=== PATIENT | female | born 1955 | race Caucasian/White ===

== ENCOUNTER → 2018-01-10 08:26 | Outpatient (CLI) | payer BC, SELFPAY ==
[2018-01-10 08:42] LABS: Abs Immature Grans 0.01 k/cumm (0.0-0.09); Absolute Basophil Count 0.03 k/cumm (0.0-0.2); Absolute Eosinophil Count 0.33 k/cumm (0.0-0.7); Absolute Lymphocyte Count 2.14 k/cumm (1.2-3.4); Absolute Monocyte Count 0.95 k/cumm (0.11-0.7); Absolute Neutrophil Count 3.95 k/cumm (1.2-6.7); Basophils % 0.4; Eosinophils % 4.5; HCT 39.5 % (36.0-46.0); HGB 12.9 g/dL (12.0-15.5); Immature Grans % 0.1; Lymphocytes % 28.9; Mean Corp. HGB Concentration 32.7 g/dL (32.0-36.0); Mean Corpuscular Hemoglobin 28.2 pg (27.0-33.0); Mean Corpuscular Volume 86.4 fL (80-95); Mean Platelet Volume 9.6 fL (8.0-11.0); Monocytes % 12.8; Neutrophils % 53.3; Platelet Count 270 x1000/uL (130-400); RBC 4.57 m/cumm (4.00-5.20); RBC Distribution Width 13.5 % (11.7-14.6); White Blood Cell Count 7.41 k/cumm (4.4-10.8)
[2018-01-10 09:12] LABS: ALT 30 U/L (12-78); AST 25 U/L (15-37); Albumin 3.9 g/dL (3.4-5.0); Alkaline Phosphatase 49 U/L (46-116); Anion Gap 9.4 mmol/L (3-11); BUN 18 mg/dL (7-18); Bilirubin, Total 0.6 mg/dL (0.2-1.0); CO2 26.6 mmol/L (21.0-32.0); CREATININE 0.93 mg/dL (0.55-1.02); Chloride 101 mmol/L (98-107); Cholesterol 207 mg/dL (50-200); Glucose 91 mg/dL (70-100); HDL Cholesterol 88 mg/dL (40-60); LDL CHOLESTEROL 110 mg/dL (<100); Potassium 4.1 mmol/L (3.5-5.1); Sodium 137 mmol/L (136-145); Total Protein 7.4 g/dL (6.4-8.2); Triglyceride 50 mg/dL (30-150)
[2018-01-10 09:35] LABS: FREE T4 1.04 ng/dL (0.76-1.46)
== END ==
PROVIDERS: PCP Internal Medicine; Visit Provider Internal Medicine
DX: E78.5 Hyperlipidemia, unspecified (principal); F41.9 Anxiety disorder, unspecified; M85.80 Other specified disorders of bone density and structure, unspecified site; R51 Headache; D64.9 Anemia, unspecified; R00.2 Palpitations
CPT/HCPCS: 36415; 80053; 80061; 83721; 84439; 84443; 85025

== ENCOUNTER 2018-02-01 15:30 | Outpatient (RCR) | payer BC, SELFPAY ==
--- NOTE | 2018-01-07 14:57 | PTTR_ITS ---
DATE: 01/07/18 SUBJECTIVE: No change in symptoms. OBJECTIVE: Manual therapy: ([id number]). (L) shoulder ROM pre tx about 150* flexion abduction 150* with painful arc from 90-150*. IR to (L) mid buttock and ER to C5. PROM (L) shoulder pre tx: Flexion 145* Abduction 145* ER 40* IR 30* post tx reaching 160* flexion, abduction. ER to 60* Soft tissue mobilization of the (L) shoulder girdle working deep tissue through the infraspinatus and supraspinatus fossa, cross friction desensitization, proximal bicep and supraspinatus tendon. Mobilization (L) shoulder all planes utilizing distraction, end range AP mobilization throughout, all of which did not allow for much pain alleviation as anticipated which resulted to some grade 2++ mobilizations working into 4 - -, working more on pain limitations to allow for mobility gains. No updates to HEP. Direct treatment time: 30 minutes Total treatment time: 30 minutes
--- NOTE | 2018-01-10 11:30 | PTTR_ITS ---
DATE: 01/10/18 SUBJECTIVE: Loulou stating her shoulder is really no better. She comes in today with her x-ray report. She leaves tomorrow for a week in [place] to visit her daughter. She understands she needs to likely make an ortho consult, but she is fearful of injections. OBJECTIVE: ROM: L shoulder pre treatment active reaches about 150 degrees flexion/ abduction with pain end range local to anterior GH joint. IR just below bra strap level, ER to level of T1 with pain end range. Passive reaching 150 flexion/abduction, ER/IR 45. Pain local to the AC region. PALPATION: Just mild discomfort with anterior AC joint, but moreso local to the AC joint, soft tissue tension appreciated through the supraspinatus fossa, levator scap, upper trap and pectorals. ACCESSORY MOTIONS: AC joint is painful with both inferior and posterior gliding , GH joint mild discomfort all planes. 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 No other pathology. Manual therapy: ([id number]). Mobilization of the L GH joint beginning with accessory gliding all planes with focus on AP inferior gliding and neutral position as well as end range flexion in quadrant positions, all were irritable and unable to alleviate symptoms, so dissipated. Completed AC and posterior gliding of a grade 4-- to her tolerance, completed end range oscillations of the GH joint into flexion and quadrant position with distraction and attempt of inferior and AP gliding, but unable to eliminate her pain as well as ER/IR grade 1-2 progressing into 4-- with some distraction, which she was able to tolerate with fair discomfort. Completed soft tissue mobilization extending along the superior, inferior aspect of the clavicle working on fascial release and moving onto cross friction massage efforts along the AC joint itself, deeper tissue work through levator scap, supraspinatus, upper trap and scalenes. In R sidelying, complete L scap thoracic mobilization focusing on some upward rotation of the L scapula, particularly into end range GH flexion, attempt to reduce the compression of the AC joint and alleviate pain; but this is not successful in regards to pain relief. She receives Rock taping to L shoulder girdle to encourage lower trap facilitation for proper posture of the shoulder girdle, decompressing the AC joint as well as tape application over the AC joint itself for desensitization. Ultrasound [id number]: for 8 mins, 50% 3 mhz, 1.2w/cm2 over L AC joint with dexamethasone. HEP review: Pendulums, continue with wall stretching activities, but without discomfort. Continue to work on lower trap isometrics and postural correction. Direct treatment time: 53 mins Total treatment time: 53 mins A: Don is having minimal to no change in response to PT treatment. X-ray identifying AC degeneration which does correlate with her clinical findings of discomfort with end range flexion/abduction, localized AC discomfort, and surrounding fascial discomfort through the AC and clavicular region. She is also demonstrating some GH joint limitations likely secondary to her AC pathology. I think ortho consult is certainly justified at this point due to lack of overall response to PT. Today, I did change up her treatment some with more isolated treatment to the AC joint, will see if this influences her symptoms at all. She will be absent from PT for 1 week as she is away on vacation and will re-assess her upon her return to see how she tolerated today' s treatment, and to see if it changed her symptoms at all. P: Follow up in 1 weeks time, schedule ortho consult, and continue with PT treatment pending response to today's treatment. SHAHID/gerry
--- NOTE | 2018-01-21 09:09 | PTTR_ITS ---
DATE: 01/21/18 SUBJECTIVE: Loulou returning after a week and a half away in [place] visiting her daughter. (L) shoulder symptoms are really unchanged through this time. Essentially no change in (L) shoulder pain since start of PT. After last session she had increased pain for a short time. She has an ortho consult scheduled for the end of February. OBJECTIVE: ROM- (L) shoulder reaches about 145-150* of both flexion and abduction with pain at end range. IR reaches bra strap but with pain ER with (L) level of T5. Passively reaches 150* of both flexion, 130* abduction going into the scapular plane reaches 145. ER/IR both 40* and both with pain at end ranges and really unchanged by the end of tx. With palpation she has remarkable tension particularly through the upper traps, supraspinatus, pec and proximal bicep, posterior capsule. Accessory motions are WNL through the glenohumeral joint but with pain with AP direction due to soft tissue drawing of the anterior joint and very tender all joints with AC joint. Manual therapy: ([id number]). Glenohumeral joint mobilizations all planes with focus of AP direction, scap thoracic gliding into all planes with distraction and retraction focus. Soft tissue mobilization throughout the entire (L) Shoulder girdle with focus of pec release, bicep release, deep tissue work through the posterior capsule. Desensitization massage over the AC joint. Grade 1-2 oscillations into flexion, quadrant, ER and IR. Pt really unable to tolerate grade 3 or 4 today. Direct treatment time: 45 minutes Total treatment time: 45 minutes ASSESSMENT: No remarkable changes, pt presents more pain dominant really having minimal response to PT efforts. Ortho consult is certainly appropriate at this point and focus more on pain management efforts today with soft tissue mobilization and scap thoracic mobs to see if this influences her pain. I will meet with her again next week and see how she responded and if she is having favorable response then proceed further. If she does not have a great deal of change with pain mangement focus we will place her on hold from PT for 2-3 visits until she meets with ortho. PLAN: As above 2x per week.
--- NOTE | 2018-01-24 15:39 | PTTR_ITS ---
DATE: 01/24/18 SUBJECTIVE: Loulou reports that she is not noticed any increase in her comfort after soft tissue mobilization techniques performed last session. She is very frustrated with her progress. She does note that she has an orthopedic appt at the end of February and her and primary therapist Christy Gallegos will discuss options of tx on Wednesday. OBJECTIVE: Manual therapy: ([id number]). In supine provide mobilization at the (L) glenohumeral joint into all planes of motion, provide AP and inferior joint mobilizations. PROM instructing into all planes. She has end range discomfort into all planes, flexion she tolerates to 165*, ER 70* and IR 60*. Provide friction massage to the GT followed by extensive soft tissue mobilization techniques through the pec musculature, posterior capsule and supraspinatus fossa. Performed trigger point release to the upper trap on the (L). She has a follow up later this week with primary therapist Christy Gallegos to discuss plan of care. Direct treatment time: 30 minutes Total treatment time: 30 minutes
--- NOTE | 2018-01-26 07:30 | PTTR_ITS ---
DATE: 01/26/18 SUBJECTIVE: Loulou stating overall still no remarkable changes in her L shoulder discomfort. At this point, she feels like even her stretches sometimes aggravate it. She had no great relief from last treatment. She is awaiting her ortho consult with Dr. Cronin on the 03/03. OBJECTIVE: L shoulder ROM: Flexion reaches about 145, abduction 145 going into scaption both with pain at end range and upon dissension. She struggles to maintain proper scapular stability. IR is to level of L1, ER to C5 both with pain at end range with facial grimacing throughout. Posture: Elevation of L shoulder girdle, hypotonicity of the L upper trap. Strength: L shoulder flexion is 4/5, abduction 4-/5 both with pain. IR/ER is 5/ 5 with pain. Differ special testing of empty can, Speeds, etc. . . due to pain dominant presentation today. ACCESSORY MOTION: Is WNL, but painful all planes. AC joint pain just upon palpation. Scap, thoracic joint is hypomobile, primarily due to patient guarding. Palpation: Tissue tightness throughout the L upper trap, L posterior capsule and remarkable restriction to the fascial of L pec. Trigger points of the infraspinatus and supraspinatus fossa. Tenderness locally at the AC joint and proximally bicep tendon. Manual therapy: ([id number]). Mobilization of L GH joint with grade 1 and 2 oscillations to accommodate the pain dominant condition, all planes. Defer AC mobilization today due to her pain. Scap, thoracic mobilizations performed as tolerated. STM primary focus for attempt of pain management with down regulation to the L pec, posterior capsule and infraspinatus. Up regulation through the lower trap, down regulation to the upper trap with trigger point release technique and deep tissue work. Rock taping for facilitation of proper scap stability, lower trap and inhibition of her L pec. Therapeutic procedures ([id number]). Review scap stabilization exercises in prone to consist of GH extension and abduction with lower trap facilitation, review pendulum and wall climb activities, only to her tolerance. Recommendations; A dry needling session to attend the soft tissue dysfunction in the event that may allow for some pain alleviation and improve tolerance to PT management. Direct treatment time: 45 mins Total treatment time: 45 mins A: Loulou is ultimately failing to PT conservative management for treatment of L shoulder pain. Clinically presents with signs and symptoms of L AC pathology, confirmed by x-ray, as well as bursitis of L GH joint. At this point I think she is still flared up and having difficult time calming down her symptoms. Ortho consult is suggested considering her lack of response to PT session. I think putting her on hold is appropriate, however I would like her to try some dry needling, which she agrees to in the meantime to see if this may allow for pain management and facilitate inhibition of her soft tissue to then respond to PT management better. P: Trial dry needling, pending response to that will resume with her private utilization efforts, or return to my care if her pain becomes under better control. At that point, she may respond better to conservative treatment. Otherwise, she will be on hold with PT. She will be contact with me between her dry needling visit so we can discuss her response. SHAHID/gerry
--- NOTE | 2018-02-01 15:30 | PTTR_ITS ---
DATE: 02/01/18 SUBJECTIVE: Loulou complains of intermittent discomfort throughout the L GH joint , occasionally through the lateral aspect of proximal humerus. It is usually movement induced, particularly when reaching behind her back, overhead or out to her side. Has difficulty laying on her L side for any prolonged period. OBJECTIVE: Asked to see Loulou by my associate LOGAN Bermudez for possible dry needling Loulou states she developed an insidious onset of L shoulder pain a few months back. She continues to be symptomatic especially with movement. She has an appt with Dr. Cronin in approximately 3-4 weeks. ARTICULAR: Her active L shoulder motion reveals good initiation with flexion/ abduction, limited to approximately 120-130 degrees with end range discomfort suprahumerally. Her abduction is approximately 80-90 degrees, then she slides into scaption plane. Her R thumb is at about T8 level when reaching behind her back, L thumb is at least 12-18 below that and painful. Her ER with elbow tucked into her side is 70 degrees R, compared to 30-40 degrees on the L, again with end range pain. AA in supine position flexion is 135-40, abduction 90 degrees, ER 60 degrees and IR 60 degrees, again with end range pain. Her pure GH movement on the L is 60 degrees compared to 100 degrees on the R. She tolerates good resistance to rotator cuff with minimal discomfort. She was on a 10 day dose of Prednisone earlier this year and it did not make any difference in her symptoms. She does take a couple Ibuprofen periodically, particularly at night time to sleep and does seem to have some positive affect. She has not been on a regular dosage of Ibuprofen or Naproxen. She may benefit form this to try a therapeutic dose over the next 3-4 days and see if it is helpful. She has no other medical problems. Discussed dry needling with her and she was not enthusiastic about this and would prefer to hold on for time being. I did mobilize her shoulder and I was able to get her close to 80-90 degrees of ER, but again she was in the scaption plane and 80 degrees of IR. Flexion close to 150-155, again she had end range pain with each of these movements. I issue her a quita mechanism for home stretches, she felt this was more effective with less pain for flexion/abduction and ER. I ice her shoulder after the session. Manual therapy: ([id number]). 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 Tolerated relatively good resistance to the cuff without discomfort and she does not appear to be fully scarred down as I was able to get relatively good range, even though it was painful. See if it will settle down, she was on some non-steroidal and how she responds to today;s mobilization. P: Have Loulou monitor her response to today's session. Issue her a quita system for AAROM, stretches to her shoulder focusing in on flexion/abduction and ER, Codman exercises frequently as well as icing. Start her anti- inflammatories, she can consult her PCP or pharmacist regarding dosage. She is going to call me by phone later this week regarding her response. DLW/dl
== END 2018-02-04 23:59 | disposition home or self-care (01) ==
LOC: PT 15:30
PROVIDERS: PCP Internal Medicine; Referring Provider Internal Medicine; Visit Provider Internal Medicine
DX: M25.512 Pain in left shoulder (principal); M65.812 Other synovitis and tenosynovitis, left shoulder; M75.22 Bicipital tendinitis, left shoulder
CPT/HCPCS: 97035; 97110; 97140

== ENCOUNTER → 2018-02-02 15:18 | Outpatient (CLI) | payer BC, SELFPAY ==
[2018-02-02 16:53] LABS: FREE T4 0.95 ng/dL (0.76-1.46); TSH (W/Ref FT4) 0.22 uIU/mL (0.358-3.74)
[2018-02-03 17:19] LABS: T3,Free 3.3 pg/ml (2.8-5.3)
[2018-02-03 17:35] LABS: T3, Total 115 ng/dl (97-169)
== END ==
PROVIDERS: PCP Internal Medicine; Visit Provider Internal Medicine
DX: R79.89 Other specified abnormal findings of blood chemistry (principal)
CPT/HCPCS: 36415; 84439; 84443; 84480; 84481

== ENCOUNTER 2018-04-22 10:30 | Outpatient (CLI) | payer BC, SELFPAY | END 2018-04-22 10:50 | PROVIDERS: PCP Internal Medicine; Visit Provider Internal Medicine | DX: R79.89 Other specified abnormal findings of blood chemistry (principal) | CPT/HCPCS: 36415; 84443 ==

== ENCOUNTER 2019-03-06 12:20 | Outpatient (REF) | payer MEDICARE, OTHER, SELFPAY ==
--- NOTE | 2019-03-06 10:00 | PAPFT_PTH ---
PATIENT: Loulou Agurire LOC: [facility] U#:[id number] AGE/SX: 63/F ROOM: RE03/06/[address]: Kimberly Mock MD : [id number] BED: DIS: 03/06/2019 SPEC #: [id number] RECD: 03/06/19 13:05 STATUS: GENNA REMirna #: [id number] MEGAN: 03/06/19 10:[address]: Kimberly Crews DEPT: [facility] Cytology RECD BY: Rita Gomez Tissues: 1 - CX/ENDOCX FOR PAP SMEARS Procedures: PAP THIN PREP/UVM Screening HPV DNA PROBE Comments: [id number]
== END 2019-03-06 12:40 ==
LOC: LBN 12:20
PROVIDERS: PCP Internal Medicine; Visit Provider Internal Medicine
DX: Z12.4 Encounter for screening for malignant neoplasm of cervix (principal); Z11.51 Encounter for screening for human papillomavirus (HPV)
CPT/HCPCS: 88142; 87624

== ENCOUNTER 2019-03-14 01:34 | Outpatient (CLI) | payer MEDICARE, OTHER, SELFPAY ==
--- NOTE | 2019-03-14 10:53 | DI.MAMMO_ITS ---
EXAM: MAMMO SCREENING CLINICAL HISTORY: screening Z12.39. TECHNIQUE: Mammograms were interpreted according to the usual protocol including computer analysis w [employer] CAD system, tomosynthesis and C-view imaging. FINDINGS: The breast tissue is moderately radiodense with fibronodular opacities noted bilaterally. There is n o dominant mass. There are no suspicious calcifications and there has been no significant interval ch scout when compared with prior images. IMPRESSION: No evidence of malignancy, category 1. Breast density, category C. BI-RADS Cat 1 - Negative. Breast Density - Category C - Heterogeneously dense.
== END 2019-03-14 01:54 ==
PROVIDERS: PCP Internal Medicine; Visit Provider Internal Medicine
DX: Z12.31 Encounter for screening mammogram for malignant neoplasm of breast (principal)
CPT/HCPCS: 77063; 77067

== ENCOUNTER 2019-12-15 03:18 | Outpatient (CLI) | payer MEDICARE, OTHER, SELFPAY ==
[2019-12-15 09:22] LABS: Anion Gap 7.8 mmol/L (3-11); BUN 18 mg/dL (7-18); CO2 26.2 mmol/L (21.0-32.0); CREATININE 0.69 mg/dL (0.55-1.02); Calcium 9.3 mg/dL (8.5-10.1); Chloride 102 mmol/L (98-107); Glucose 107 mg/dL (74-106); Potassium 4.9 mmol/L (3.5-5.1); Sodium 136 mmol/L (136-145)
== END 2019-12-15 03:38 ==
PROVIDERS: PCP Nurse Practitioner
DX: Z79.899 Other long term (current) drug therapy (principal)
CPT/HCPCS: 36415; 80048

== ENCOUNTER 2020-04-16 07:57 | Outpatient (CLI) | payer MEDICARE, OTHER, SELFPAY ==
[2020-04-20 22:51] LABS: Patient Race White; SARS-CoV-2 RNA Undetected (Undetected); SARS-CoV-2 Specimen Source Nasal
== END 2020-04-16 08:17 ==
PROVIDERS: PCP Nurse Practitioner; Visit Provider Nurse Practitioner
DX: Z11.59 Encounter for screening for other viral diseases (principal)
CPT/HCPCS: U0003

== ENCOUNTER 2020-04-26 04:17 | Outpatient (CLI) | payer MEDICARE, OTHER, SELFPAY ==
--- NOTE | 2020-04-26 10:20 | DI.MAMMO_ITS ---
EXAM: MG MAMMO SCREENING CLINICAL HISTORY: screening,Z12.39 TECHNIQUE: Bilateral full field digital CC and MLO mammographic images were obtained with 3D tomosyn thesis and utilizing computer aided detection (CAD). COMPARISON: Available for comparison. FINDINGS: Masses/Architectural Distortion: None seen. Microcalcifications: No suspicious pleomorphic-type are seen. Skin Thickening/Nipple Retraction: None. IMPRESSION: 1. No significant interval change with no specific features of malignancy noted. 2. Unless there is more urgent need, screening mammography is recommended, as per [employer] guidelines. BI-RADS Category 1 - Negative Breast Density - Category B - Scattered areas of fibroglandular density A negative radiographic report should not delay biopsy if a dominant or clinically suspicious mass is present. Up to ten percent of cancers are not identified on mammography. A negative report may reinforce clinical impression. Adenosis and dense breasts may obscure an underlying neoplasm. False positive reports average 6 to 10%. Patient will receive a letter notifying them of these results.
== END 2020-04-26 04:37 ==
PROVIDERS: PCP Nurse Practitioner; Visit Provider Nurse Practitioner
DX: Z12.31 Encounter for screening mammogram for malignant neoplasm of breast (principal)
CPT/HCPCS: 77063; 77067

== ENCOUNTER 2020-04-26 08:04 | Outpatient (RCR) | payer MEDICARE, OTHER, SELFPAY ==
--- NOTE | 2020-04-26 10:30 | HOLTER_ITS ---
APPROVED REPORT Exam Type: HOLTER MONITOR APPLICATION Reason for Test: I49.4 CARIDAC ARRHYTHMIA Patient Location: O Conclusion This was a 48-hour Holter monitor reportedly ordered for symptoms of cardiac arrhythmia The rhythm throughout was sinus with an average heart rate of 71. Minimum heart rate was 43 and maxi mum 118 There were very rare atrial and ventricular ectopic beats There were several brief atrial runs, the longest of which was 8 beats in duration. None of these we re symptomatic Patient symptoms corresponded to sinus rhythm rate 92 There was no atrial fibrillation, no pauses greater than 3 seconds, no high-grade AV block
== END 2020-05-06 23:59 | disposition home or self-care (01) ==
LOC: RT 08:04
PROVIDERS: PCP Nurse Practitioner; Visit Provider Nurse Practitioner
DX: I49.8 Other specified cardiac arrhythmias (principal); I49.1 Atrial premature depolarization
CPT/HCPCS: 93227; 93225; 93226

== ENCOUNTER 2020-04-29 20:03 | Outpatient (REF) | payer MEDICARE, OTHER, SELFPAY ==
[2020-05-02 13:15] LABS: Patient Race White; SARS-CoV-2 RNA Undetected (Undetected); SARS-CoV-2 Specimen Source Nasal
== END 2020-04-29 20:23 ==
LOC: NCHCN 20:03
PROVIDERS: PCP Nurse Practitioner; Visit Provider Internal Medicine
DX: Z20.828 Contact with and (suspected) exposure to other viral communicable diseases (principal)
CPT/HCPCS: U0003

== ENCOUNTER 2020-12-23 03:16 | Outpatient (CLI) | payer MEDICARE, OTHER, SELFPAY ==
[2020-12-23 12:56] LABS: Anion Gap 8.5 mmol/L (3-11); BUN 19 mg/dL (7-18); CO2 27.5 mmol/L (21.0-32.0); CREATININE 0.8 mg/dL (0.55-1.02); Calcium 8.9 mg/dL (8.5-10.1); Chloride 102 mmol/L (98-107); Glucose 103 mg/dL (74-106); Potassium 4.2 mmol/L (3.5-5.1); Sodium 138 mmol/L (136-145)
== END 2020-12-23 03:17 | disposition home or self-care (01) ==
LOC: LOS 03:19
PROVIDERS: PCP Nurse Practitioner; Visit Provider Nurse Practitioner Family
DX: G43.109 Migraine with aura, not intractable, without status migrainosus (principal)
CPT/HCPCS: 36415; 80048

== ENCOUNTER 2021-05-26 01:03 | Outpatient (CLI) | payer MEDICARE, OTHER, SELFPAY ==
--- NOTE | 2021-05-26 08:25 | DI.MAMMO_ITS ---
Exam(s) MAMMO SCREENING EXAM: MAMMO SCREENING CLINICAL HISTORY: screening,z12.39 TECHNIQUE: Mammograms were interpreted according to the usual protocol including computer analysis w [employer] CAD system, tomosynthesis and C-view imaging. COMPARISON: 2012 through 2019 FINDINGS: The breasts are composed of scattered fibroglandular densities, Breast Density category B. No suspicious masses or suspicious microcalcifications are seen. No skin thickening or abnormal axillary lymph nodes are seen. There has been no significant change from prior exams. IMPRESSION: BI-RADS Category 1, Negative mammogram Yearly screening mammography is recommended. Breast Density - Category B, scattered fibroglandular densities. A negative radiographic report should not delay biopsy if a dominant or clinically suspicious mass is present. Up to ten percent of cancers are not identified on mammography. A negative report may reinforce clinical impression. Adenosis and dense breasts may obscure an underlying neoplasm. False positive reports average 6 to 10%. Patient will receive a letter notifying them of these results.
== END 2021-05-26 01:23 ==
PROVIDERS: PCP Nurse Practitioner; Visit Provider Nurse Practitioner
DX: Z12.31 Encounter for screening mammogram for malignant neoplasm of breast (principal)
CPT/HCPCS: 77063; 77067

== ENCOUNTER 2021-06-11 00:48 | Outpatient (CLI) | payer MEDICARE, OTHER, SELFPAY ==
--- NOTE | 2021-06-11 09:15 | DI.DEXA_ITS ---
Exam(s) XR DEXA BONE DENSITY W/WO CRUZ EXAM: XR DEXA BONE DENSITY W/WO CRUZ CLINICAL HISTORY: osteopenia l hip 2017,screening for osteoporosis in postmenopausal woman, TECHNIQUE: COMPARISON: Comparison examination is 02/23/2017. FINDINGS: Lateral Spine Image: Unremarkable. No compression deformities identified. Left hip: Total T-Score: -1.9. This compares to -1.8 on the prior examination. Total Z-Score: -0.5 T- and Z-scores: Findings are consistent with osteopenia. Lumbar Spine: Total T-Score: -1.1. This compares to -0.9 on the prior examination. Total Z-Score: 0.9 T- and Z-scores: Findings are consistent with osteopenia. IMPRESSION: No evidence of osteoporosis. Osteopenia in the left hip and lumbar spine.
== END 2021-06-11 01:08 ==
PROVIDERS: PCP Nurse Practitioner; Visit Provider Nurse Practitioner
DX: Z78.0 Asymptomatic menopausal state (principal); Z13.820 Encounter for screening for osteoporosis; M85.89 Other specified disorders of bone density and structure, multiple sites
CPT/HCPCS: 77080

== ENCOUNTER 2022-06-17 01:35 | Outpatient (CLI) | payer MEDICARE, OTHER, SELFPAY ==
--- NOTE | 2022-06-17 06:30 | DI.MAMMO_ITS ---
Exam(s) MAMMO SCREENING EXAM: MAMMO SCREENING CLINICAL HISTORY: screening,z12.39 TECHNIQUE: Mammograms were interpreted according to the usual protocol including computer analysis w [employer] CAD system, tomosynthesis and C-view imaging. COMPARISON: 2012 through 2020 FINDINGS: The breasts are composed of scattered fibroglandular densities, Breast Density category B. No suspicious masses or suspicious microcalcifications are seen. No skin thickening or abnormal axillary lymph nodes are seen. There has been no significant change from prior exams. IMPRESSION: BI-RADS Category 1, Negative mammogram Yearly screening mammography is recommended. Breast Density - Category B, scattered fibroglandular densities. A negative radiographic report should not delay biopsy if a dominant or clinically suspicious mass is present. Up to ten percent of cancers are not identified on mammography. A negative report may reinforce clinical impression. Adenosis and dense breasts may obscure an underlying neoplasm. False positive reports average 6 to 10%. Patient will receive a letter notifying them of these results.
== END 2022-06-17 01:55 ==
LOC: DI 01:35
PROVIDERS: PCP Nurse Practitioner Family; Visit Provider Nurse Practitioner Family
DX: Z12.31 Encounter for screening mammogram for malignant neoplasm of breast (principal)
CPT/HCPCS: 77063; 77067

== ENCOUNTER → 2022-07-09 13:43 | Outpatient (BNVA) | payer MEDICARE, OTHER, SELFPAY | PROVIDERS: PCP Nurse Practitioner Family; Referring Provider Nurse Practitioner Family; Visit Provider Internal Medicine Cardiovascular Disease | DX: I48.91 Unspecified atrial fibrillation (principal); I10 Essential (primary) hypertension | CPT/HCPCS: 93005; 99203 ==

== ENCOUNTER 2022-07-09 13:54 | Outpatient (CLI) | payer MEDICARE, OTHER, SELFPAY ==
--- NOTE | 2022-07-09 13:45 | RT.EKG_ITS ---
APPROVED REPORT Exam: Resting ECG Reason for Exam: family hx Patient Location: O HR:118 bpm ECG Measurements Heart Rate 118 AXIS ID [id number] P [id number] QRSd 95 QRS -13 QT 356 T 37 QTc 499 Conclusion Atrial fibrillation...V-rate 93-156, irreg A-activity Consider anterior infarct...Q >30mS in V2-V5
== END 2022-07-09 13:55 | disposition home or self-care (01) ==
LOC: DI.CARD 13:54
PROVIDERS: PCP Nurse Practitioner Family; Visit Provider Internal Medicine Cardiovascular Disease
DX: Z82.49 Family history of ischemic heart disease and other diseases of the circulatory system (principal); R94.31 Abnormal electrocardiogram [ECG] [EKG]; I48.91 Unspecified atrial fibrillation
CPT/HCPCS: 93010

== ENCOUNTER 2022-08-20 01:02 | Outpatient (CLI) | payer MEDICARE, OTHER, SELFPAY ==
--- NOTE | 2022-08-20 07:30 | DI.US_ITS ---
APPROVED REPORT EXAM: Comprehensive 2D, Doppler, and color-flow Echocardiogram Patient Location: Out-Patient Environmental Engineer: Megan Moreland RDCS (AE) Indications: Atrial Fibrillation, HT, F/H Hypertrophic Cardiomyopathy Other Information Study Quality: Adequate Conclusion Normal left ventricular wall thickness and chamber size. Estimated ejection fraction is 55 to 60%. Wall motion is normal The right ventricle is moderately dilated. Right ventricular systolic function appears normal The left atrium is moderately dilated. The right atrium is moderately to severely dilated Aortic valve is trileaflet with mild regurgitation Normal mitral valve with moderate regurgitation Normal tricuspid valve with moderate regurgitation. Estimated right ventricular systolic pressure is 31 mmHg Wall motion Left Ventricle The left ventricle is normal size. The left ventricular systolic function is normal. The left ventric ular ejection fraction is within the normal range. There is normal left ventricular wall thickness. T here is normal LV segmental wall motion. There is no ventricular septal defect visualized. LVEF is 58 %. Right Ventricle Right ventricle is moderately dilated. Right ventricular systolic function is grossly normal. The RV SP is 30.7 mmHg. Atria Left atrium is mildly dilated. Right atrium is moderate to severely dilated. The interatrial septum i s intact with no evidence for an atrial septal defect. Aortic Valve The aortic valve is normal in structure. Aortic valve is trileaflet. There is no aortic valvular sten osis. Mild aortic regurgitation. Mitral Valve The mitral valve is normal in structure. No evidence of mitral valve stenosis. Moderate mitral regur gitation. Tricuspid Valve The tricuspid valve is normal in structure. There is no tricuspid valve stenosis. Moderate tricuspid regurgitation. Pulmonic Valve The pulmonary valve is normal in structure. There is no pulmonic valvular stenosis. Mild to moderate pulmonic regurgitation. Great Vessels The aortic root is normal in size. The ascending aorta is normal in size. Aortic arch is not well vis ualized. IVC is normal in size and collapses >50% with inspiration. Pericardium There is no pericardial effusion. 2D Dimensions IVSD d PLAX 0.66 cm F: 0.6-1.0 LV Vol A2C d MOD 78.1 mL LVPW d PLAX 0.68 cm F: 0.6 - 1.0 LV Vol A4C d MOD 73.0 mL LVID d PLAX 4.22 cm F: 3.8 - 5.2 LA vol/ BSA A2C s A-L 38.9 mL/m2 LVDs 2.85 cm F: 2.2 - 3.5 LA vol/ BSA A4C s A-L 27.8 mL/m2 Ao Root d 3.05 cm F: 2.7 - 3.3 LA Vol/ BSA Biplane s A-L 34.1 mL/m2 RA Area A4C 22.66 cm2 LA Area A4C s MOD 17.27 cm2 RA Vol/ BSA A4C s A-L 54.0 mL/m2 LA Area A2C s MOD 21.19 cm2 Ao Asc Diam d 3.06 cm F: 2.3 - 3.1 LV EF A4C MOD 58.8 % LV EF Teichholz 60.6 % LV EF A2C MOD 55.0 % LVEF (Ziegler's) 55.78 % F: 54 - 74 LV EF Biplane MOD 55.8 % LV Volume 61.31 mL F: 46 - 106 SV 42.17 mL LV Volume Index 38.08 mL/m2 F: 29 - 61 SV Index 26.21 mL/m2 LV Vol Biplane MOD 75.6 mL FS 32.05 % M-Mode TAPSE 2.12 cm (M/F) >1.7 LV Diastology MV E' medial 0.131 (>0.07 m/s) MV E Vmax 1.18 (0.4-1.3 m/s) LV E/e MED 9.00 (<14) MV E' lateral 0.198 (>0.1 m/s) LV E/e LAT 5.95 (<14) MV E/E' medial 9.01 MV E/E' lateral 5.98 Aortic Valve LVOT Area 2.84 cm2 AoV Area Vmax 2.25 cm2 LVOT Vmax 1.15 m/s AoV Area/ BSA (Vmax) 1.40 cm2/m2 LVOT Mean Cal. 0.83 m/s LEE Mean Cal. 2.46 cm2 LVOT Peak Grad 5.3 mmHg LEE Mean Cal. Index 1.53 cm2/m2 LVOT Mean Grad 3.0 mmHg AR DT 1621 msec LVOT VTI 0.228 m AR PHT 470 msec LVOT Diam s 1.90 cm AoV Vmax 1.46 m/s Velocity Ratio 0.79 AoV Mean Cal. 0.96 m/s AoV Peak Grad 8.5 mmHg LVOT SV 64.65 mL AoV Mean Grad 4.3 mmHg AoV VTI 0.215 m AoV Area VTI 3.01 cm2 AoV Area/ BSA (VTI) 1.87 cm/m2 Mitral Valve MV DT 135 (160-240 msec) MV PHT 39 msec MV Area PHT 5.62 cm2 MV VTI 0.235 m MV Area VTI 2.75 (4.0-6.0 cm2) Pulmonary Valve PV Vmax 0.99 (0.5-1.5 m/s) RVOT Peak Gr. 2.19 mmHg PV Peak Grad 4.0 mmHg RVOT Mean Gr. 1.35 mmHg PV Mean Grad 2.0 mmHg RVOT VTI 0.163 m PV VTI 0.201 m RVOT Vmax 0.74 m/s Tricuspid Valve TR Peak Grad 27.7 mmHg TR Vmax 2.63 m/s RA Pressure 3.00 mmHg RVSP (TR) 30.7 mmHg
== END 2022-08-20 01:22 ==
LOC: DI 01:02
PROVIDERS: PCP Nurse Practitioner Family; Visit Provider Internal Medicine Cardiovascular Disease
DX: I10 Essential (primary) hypertension (principal); I48.91 Unspecified atrial fibrillation
CPT/HCPCS: 93306

== ENCOUNTER → 2022-08-25 08:44 | Outpatient (BNVA) | payer MEDICARE, OTHER, SELFPAY | PROVIDERS: PCP Nurse Practitioner Family; Referring Provider Nurse Practitioner Family; Visit Provider Internal Medicine Cardiovascular Disease | DX: I48.91 Unspecified atrial fibrillation (principal); I10 Essential (primary) hypertension | CPT/HCPCS: 99214 ==

== ENCOUNTER → 2022-12-03 12:47 | Outpatient (BNVA) | payer MEDICARE, OTHER, SELFPAY | PROVIDERS: PCP Nurse Practitioner Family; Referring Provider Nurse Practitioner Family; Visit Provider Internal Medicine Cardiovascular Disease | DX: I48.11 Longstanding persistent atrial fibrillation (principal); Z79.01 Long term (current) use of anticoagulants; R42 Dizziness and giddiness; I10 Essential (primary) hypertension | CPT/HCPCS: 99214 ==

== ENCOUNTER → 2023-06-17 01:15 | Outpatient (CLI) | payer MEDICARE, OTHER, SELFPAY ==
--- NOTE | 2023-06-17 | DI.DEXA_ITS ---
Exam(s) XR DEXA BONE DENSITY W/WO CRUZ EXAM: XR DEXA BONE DENSITY W/WO CRUZ CLINICAL HISTORY: HYPERTHYROIDISM,E05.90,OSTEOPENIA,M85.89 TECHNIQUE: COMPARISON: CR XR DEXA BONE DENSITY W/WO CRUZ from 06/11/2021 FINDINGS: Lateral Spine Image: Unremarkable. No compression deformities identified. Left hip: Total T-Score: -1.7. This compares to -1.9 on the prior examination. Total Z-Score: -0.2. T- and Z-scores: Findings are consistent with osteopenia. Lumbar Spine: Total T-Score: -1.9. This compares to -0.9 on the prior examination. Total Z-Score: 0.1 T- and Z-scores: Findings are consistent with osteopenia. Osteoporosis is noted in the L1 vertebral body with a T-score of -2.9. IMPRESSION: Osteoporosis in the L1 vertebral body.
== END ==
PROVIDERS: PCP Nurse Practitioner Family; Visit Provider Internal Medicine
DX: M85.89 Other specified disorders of bone density and structure, multiple sites (principal); Z13.820 Encounter for screening for osteoporosis
CPT/HCPCS: 77080

== ENCOUNTER 2023-11-02 11:09 | Outpatient (REF) | payer MEDICARE, SELFPAY ==
--- NOTE | 2023-11-02 10:00 | SKI_PTH ---
PATIENT: Loulou Aguirre LOC: [facility] U#:[id number] AGE/SX: 68/F ROOM: RE11/02/[address]: Tarah Gaytan NP : [id number] BED: DIS: 11/02/2023 SPEC #: [id number] RECD: 11/02/23 13:12 STATUS: GENNA BURCH #: [id number] MEGAN: 11/02/23 10:[address]: Tarah Gaytan DEPT: Surgical Specimen RECD BY: Rita Gomez Tissues: 1 - SKIN CYST/TAG/DEBRIDEMENT 2 - SKIN CYST/TAG/DEBRIDEMENT Procedures: SKIN LEVEL 4 Comments:
== END 2023-11-02 11:10 | disposition home or self-care (01) ==
LOC: LBN 11:09
PROVIDERS: PCP Nurse Practitioner Family; Visit Provider Nurse Practitioner Family
DX: L98.9 Disorder of the skin and subcutaneous tissue, unspecified (principal); L82.1 Other seborrheic keratosis
CPT/HCPCS: 88304; 88305

== ENCOUNTER 2024-06-20 03:26 | Outpatient (CLI) | payer MEDICARE, SELFPAY ==
[2024-06-20 10:39] LABS: HCT 38.2 % (36.0-46.0); HGB 12.3 g/dL (11.2-15.7); MCH 28.8 pg (27.0-33.0); MCHC 32.2 % (32.0-36.0); MCV 90 fL (80-95); MPV 9.8 fL (8.0-11.0); Platelet Count 271 10^3/uL (130-400); RBC 4.27 10^6/uL (3.93-5.22); RDW 13.3 % (11.7-14.6); RDW-SD 43.6 fL; WBC 7.58 10^3/uL (4.4-10.8)
[2024-06-20 11:07] LABS: ALT 29 U/L (14-59); AST 27 U/L (15-37); Albumin 3.9 g/dL (3.4-5.0); Alkaline Phosphatase 44 U/L (46-116); BUN 14 mg/dL (7-18); Bilirubin, Total 0.33 mg/dL (0.2-1.0); CO2 29.1 mmol/L (21.0-32.0); CREATININE 0.9 mg/dL (0.55-1.02); Calcium 9.3 mg/dL (8.5-10.1); Calculated LDL 138 mg/dL (<100); Cholesterol 248 mg/dL (<200); Estimated GFR 68.77 (mL/min/1.73m2); Glucose 99 mg/dL (74-106); HDL Cholesterol 97 mg/dL (40-60); Potassium 4.3 mmol/L (3.5-5.1); TSH (W/Ref FT4) 0.93 uIU/mL (0.36-3.74); Total Protein 7.6 g/dL (6.4-8.2); Triglyceride 66 mg/dL (<150)
[2024-06-20 11:13] LABS: Anion Gap 6.9 mmol/L (3-11); Chloride 104 mmol/L (98-107); Sodium 140 mmol/L (136-145)
[2024-06-20 11:29] LABS: Hemoglobin A1C 5.8 % (<5.7)
== END 2024-06-20 03:27 | disposition home or self-care (01) ==
LOC: LBO 03:26
PROVIDERS: PCP Nurse Practitioner Family; Visit Provider Nurse Practitioner Family
DX: R73.09 Other abnormal glucose (principal); Z00.00 Encounter for general adult medical examination without abnormal findings; I10 Essential (primary) hypertension; I48.91 Unspecified atrial fibrillation; E05.00 Thyrotoxicosis with diffuse goiter without thyrotoxic crisis or storm; F43.23 Adjustment disorder with mixed anxiety and depressed mood
CPT/HCPCS: 36415; 80053; 80061; 85027; 83036; 84443

== ENCOUNTER 2024-06-27 01:30 | Outpatient (CLI) | payer MEDICARE, SELFPAY ==
--- NOTE | 2024-06-27 07:00 | DI.MAMMO_ITS ---
Exam(s) MAMMO SCREENING EXAM: MAMMO SCREENING CLINICAL HISTORY: screening,z12.39. TECHNIQUE: Bilateral full field digital CC and MLO mammographic images were obtained with 3D tomosyn thesis and utilizing computer aided detection (CAD). COMPARISON: Prior mammograms were reviewed. FINDINGS: There has been no significant change in the appearance and distribution of the fibroglandular tissue. there are no cad designations. There are no new spiculated masses nor malignant appearing microcalcification groups. There is no significant architectural distortion nor skin thickening-retraction. IMPRESSION: No radiographic evidence of malignancy. BI-RADS Category 1 - Negative Breast Density - Category B - Scattered areas of fibroglandular density Breast density Category C or D implies that the patient has dense breast tissue. Dense breast tissue can make it harder to find cancer on a mammogram. Dense breast tissue is also associated with an incr eased risk of breast cancer. This information about the result of the mammogram report was provided to the patient to raise their awareness. Use this report when you speak with the patient about their risks for breast cancer, which includes their family history. At that time, you may recommend additional screening tests (Ultrasoun d or MRI) as these tests may add significant information. A negative radiographic report should not delay biopsy if a dominant or clinically suspicious mass is present. Up to ten percent of cancers are not identified on mammography. A negative report may reinforce clinical impression. Adenosis and dense breasts may obscure an underlying neoplasm. False positive reports average 6 to 10%. Patient will receive a letter notifying them of these results.
== END 2024-06-27 01:50 ==
LOC: DI 01:30
PROVIDERS: PCP Nurse Practitioner Family; Visit Provider Nurse Practitioner Family
DX: Z12.31 Encounter for screening mammogram for malignant neoplasm of breast (principal); R92.323 Mammographic fibroglandular density, bilateral breasts
CPT/HCPCS: 77063; 77067